=== PATIENT | male | born 1985 | race Two or more races ===

== ENCOUNTER 2025-06-06 15:26 | Emergency (ER) | payer OTHER ==
[~2025-06-06] VITALS: Ht 175.3 cm; Wt 109.1 kg
[2025-06-06 15:28] VITALS: TEMP 97.8
--- NOTE | 2025-06-06 15:59 | ED.PDOC ---
Foreign Body HPI Comments 40y M who presents to the ED for chief complaint of foreign body. Pt states he ate a multivitamin earlier this afternoon and states he started to feel something was stuck in his throat afterwards. Pt states he tried to drink his entire water bottle to help with swallowing and states despite finishing whole bottle of water, pt continues to feel a sensation of something stuck in his throat. Pt states he felt a irritation when drinking water and came to the ED for further evaluation. Pt in the ED, in no respiratory distress and states he is able to keep solids and liquids down since. Pt otherwise denies any medical history or these symptoms in the past. Pt in the ED, otherwise stable vitals including 02 sat of 96% on room air, BP 127/73, rr 16, heart rate 61 and temp of 97.8 F. Pt otherwise denies any other symptoms at this time. Chief Complaint: Foreign Body Time Seen by MD: 16:08 History of Present Illness: Medications, Allergies Allergies: Coded Allergies: NO KNOWN ALLERGIES (Unverified , 06/06/25) Information Source: Patient Mode of Arrival: Ambulatory Past Medical History PAST MEDICAL HISTORY: Denies Surgical History: Denies all surgeries Family History Family History: Reviewed,noncontributory to illness Social History Smoker: Non-Smoker Alcohol: Denies ETOH Use Drugs: Denies Drug Use Lives In: Home All Other Systems: Reviewed and Negative (see HPI) Physical Exam General Appearance: No Apparent Distress HEENT: Other (Pupils and face symmetric. Moist mucous membranes. No pharyngeal erythema, edema or lesion noted.) Neck: Full Range of Motion, Normal Inspection Respiratory: Lungs Clear, No Accessory Muscle Use, No Respiratory Distress, Normal Breath Sounds Cardiovascular: No Edema, No JVD, Regular Rate/Rhythm Breast Exam: Deferred Gastrointestinal: Non Tender, Soft Genitalia: Deferred Pelvic: Deferred Rectal: Deferred Extremities: Normal inspection, Normal range of motion, Non-tender, No pedal edema Neurologic: Alert (Oriented x4), Normal Affect, Normal Mood, Other (Ambulatory) Cerebellar Function: NOT DONE Reflexes: NOT DONE Skin: Dry, Normal Color, Warm Lymphatic: NOT DONE Was a procedure done? Was a procedure done?: No FB Differential Dx Differential Diagnosis: Abrasion, Foreign Body, Other (Pharyngitis, esophagitis, among others) X-Ray, Labs, Meds, VS Vital Signs Date Time Temp Pulse Resp B/P (MAP) Pulse Ox O2 Delivery O2 Flow Rate FiO2 06/06/25 15:28 97.8 61 16 127/73 96 97.8 Lab Test 06/06/25 16:49 Range/Units White Blood Count 7.3 4.4-10.8 10^3/uL Red Blood Count 4.29 L 4.5-5.90 10^6/uL Hemoglobin 15.0 13.5-17.5 g/dL Hematocrit 40.8 L 41.0-53.0 % Mean Corpuscular Volume 95.1 80.0-100.0 fL Mean Corpuscular Hemoglobin 34.9 H 28.0-32.0 pg Mean Corpuscular Hemoglobin Concent 36.7 H 32.0-36.0 g/dL Red Cell Distribution Width 11.9 11.8-14.3 % Platelet Count 170 140-450 10^3/uL Mean Platelet Volume 10.4 6.9-10.8 fL Neutrophils (%) (Auto) 70.0 37.0-80.0 % Lymphocytes (%) (Auto) 20.8 10.0-50.0 % Monocytes (%) (Auto) 7.3 0.0-12.0 % Eosinophils (%) (Auto) 1.1 0.0-7.0 % Basophils (%) (Auto) 0.8 0.0-2.0 % Neutrophils # (Auto) 5.1 1.6-8.6 10 ^3/uL Lymphocytes # (Auto) 1.5 0.4-5.4 10 ^3/uL Monocytes # (Auto) 0.5 0-1.3 10 ^3/uL Eosinophils # (Auto) 0.1 0-0.8 10 ^3/uL Basophils # (Auto) 0.1 0-0.2 10 ^3/uL Nucleated Red Blood Cells 0.0 % Sodium Level 138 136-145 mmol/L Potassium Level 3.9 3.5-5.1 mmol/L Chloride Level 106 98-107 mmol/L Carbon Dioxide Level 25 20-31 mmol/L Anion Gap 7 5-15 Blood Urea Nitrogen 10 9-23 mg/dL Creatinine 0.84 0.700-1.30 mg/dL Glomerular Filtration Rate Calc 112 >90 mL/min BUN/Creatinine Ratio 11.9 10.0-20.0 Serum Glucose 102 74-106 mg/dL Calcium Level 9.0 8.7-10.4 mg/dL Current Medications Medications (Trade) Dose Ordered Sig/Nasreen Route Start Time Stop Time Status Last Admin Lidocaine HCl (Xylocaine 2% Viscous) 10 ml ONCE ONCE PO 06/06/25 16:00 06/06/25 16:01 DC 06/06/25 16:[address] [address] Ph: [phone] DIAGNOSTIC IMAGING Diagnostic Imaging Report : [id number] Signed PATIENT: ERICK MAC ACCT: [id number] UNIT: [id number] : 1985 LOC: ER ROOM / BED: / AGE / SEX: 40 / M ADM STATUS: REG ER SERVICE 1551 ORDERING PHYSICIAN: MARILYN MYERS MD PROCEDURE(s): NKICT - NECK WITHOUT CONTRAST REASON: possible throat FB (vitamin tablet) ORDER NUMBER(s): [id number], ACCESSION NUMBER(s): [id number] CLINICAL HISTORY: possible throat FB (vitamin tablet) TECHNIQUE: CT of the neck was performed without intravenous contrast. This exam was performed according to our departmental dose optimization program. Up-to-date CT equipment and radiation dose reduction techniques are utilized as appropriate. CTDI 25.5 DLP 841.9 COMPARISON: None FINDINGS: The parotid, submandibular, and thyroid glands are grossly unremarkable. The airway is patent. The epiglottis and palatine/lingual tonsils are unremarkable. No definite foreign body is evident. No acute osseous abnormalities evident. There is no enlarged lymph node. The imaged intracranial structures are grossly unremarkable. The image upper lungs are clear. IMPRESSION: No acute noncontrast CT abnormality of the neck. ATED BY: PIPE WEI MD DICTATED DATE/TIME: 06/06/251630 SIGNED BY: PIPE WEI MD SIGNED DATE/TIME: 06/06/25 1631 CC: [address] [address] Ph: [phone] DIAGNOSTIC IMAGING Diagnostic Imaging Report : [id number] Signed PATIENT: ERICK MAC ACCT: [id number] UNIT: [id number] : 1985 LOC: ER ROOM / BED: / AGE / SEX: 40 / M ADM STATUS: REG ER SERVICE 1551 ORDERING PHYSICIAN: MARILYN MYERS MD PROCEDURE(s): CXRP - CHEST PORTABLE REASON: possible throat FB (vitamin) ORDER NUMBER(s): [id number], ACCESSION NUMBER(s): [id number] CLINICAL HISTORY: possible throat FB (vitamin) TECHNIQUE: Single view of the chest was obtained. COMPARISON: None FINDINGS: The heart size and pulmonary vasculature are normal. The lungs are clear. IMPRESSION: NO ACUTE CARDIOPULMONARY PROCESS. ATED BY: PIPE WEI MD DICTATED DATE/TIME: 06/06/251625 SIGNED BY: PIPE WEI MD SIGNED DATE/TIME: 06/06/251625 CC: X-Ray, Labs, Meds, VS Comment 40-year-old male with no significant past medical history complaining of a foreign body sensation in his throat after swallowing a vitamin Vitals unremarkable Exam unremarkable Rhythm strip independently interpreted by me: Sinus rhythm, rate 61, no ectopy. CT neck soft tissue unremarkable Chest x-ray unremarkable CBC and basic metabolic panel unremarkable Patient treated with the following in the ED: Viscous lidocaine 10 mL p.o. On re-evaluation, patient states symptoms have improved. Vitals were stable. No difficulty swallowing and no respiratory distress. Patient appears stable for discharge with close outpatient follow-up with his primary doctor. Rx ibu profen Time of 1ST Reevaluation: 18:29 Reevaluation 1ST: Improved Patient Education/Counseling: Diagnosis, Treatment Family Education/Counseling: No Family Present Departure 1 Departure Time of Disposition: 18:29 Impression: Primary Impression: Sensation of foreign body in throat Disposition: HOME / SELF CARE / HOMELESS Condition: Stable Additional Instructions: Your blood tests were unremarkable. Your chest x-ray was normal. Your neck CT did not show any throat foreign body. Your symptoms may be due to irritation or an abrasion in your throat. I have prescribed pain medication. Follow-up with your primary doctor in 1-2 days. Return to ER for persistent or worsening symptoms. e-Prescriptions Ibuprofen Micronized (Ibuprofen) 800 Mg Tab 800 MG PO Q8HP PRN, #30 TAB Prn throat pain. Take with food. Prov: MARILYN MYERS MD 06/06/25 Discharged With: Self Critical Care Note Critical Care Time?: No Stability Stability form required: No Heart Score Heart Score: Heart Score Response (Comments) Value History N/A 0 EKG N/A 0 Age N/A 0 Risk Factors N/A 0 Troponin N/A 0 Total 0 I personally scribed for MARILYN MYERS MD ([email or web address]) on 06/06/25 at 15:59. Electronically submitted by Priti Royal ([facility] [employer]). I personally scribed for MARILYN MYERS MD ([email or web address]) on 06/06/25 at 16:09. Electronically submitted by Priti Royal ([facility]). I personally scribed for MARILYN MYERS MD (NETTABRIAN) on 06/06/25 at 16:36. Electronically submitted by Priti Royal ([facility]). MARILYN MYERS MD Jun 06, 2025 15:59
--- NOTE | 2025-06-06 16:28 | DVH ---
CLINICAL HISTORY: possible throat FB (vitamin) TECHNIQUE: Single view of the chest was obtained. COMPARISON: None FINDINGS: The heart size and pulmonary vasculature are normal. The lungs are clear. IMPRESSION: NO ACUTE CARDIOPULMONARY PROCESS.
[2025-06-06] MEDS: LIDOCAINE VISCOUS 2% 15ML UD PO ONE (16:32)
--- NOTE | 2025-06-06 16:33 | DVH ---
CLINICAL HISTORY: possible throat FB (vitamin tablet) TECHNIQUE: CT of the neck was performed without intravenous contrast. This exam was performed accordi ng to our departmental dose optimization program. Up-to-date CT equipment and radiation dose reductio n techniques are utilized as appropriate. CTDI 25.5 DLP 841.9 COMPARISON: None FINDINGS: The parotid, submandibular, and thyroid glands are grossly unremarkable. The airway is patent. The epiglottis and palatine/lingual tonsils are unremarkable. No definite foreign body is evident. No acute osseous abnormalities evident. There is no enlarged lymph node. The imaged intracranial structures are grossly unremarkable. The image upper lungs are clear. IMPRESSION: No acute noncontrast CT abnormality of the neck.
[2025-06-06 17:20] LABS: Hematocrit 40.8 % (41.0-53.0); Hemoglobin 15.0 g/dL (13.5-17.5); Mean Corpuscular Hemoglobin 34.9 pg (28.0-32.0); Mean Corpuscular Volume 95.1 fL (80.0-100.0); Nucleated Red Blood Cells % 0.0 %
[2025-06-06 17:30] LABS: Chloride 106 mmol/L (98-107); Potassium 3.9 mmol/L (3.5-5.1); Sodium 138 mmol/L (136-145)
[2025-06-06 17:31] LABS: Anion Gap 7 (5-15); Carbon Dioxide 25 mmol/L (20-31)
[2025-06-06 17:32] LABS: Calcium 9.0 mg/dL (8.7-10.4)
[2025-06-06 17:36] LABS: BUN/Creatinine Ratio 11.9 (10.0-20.0); Blood Urea Nitrogen 10 mg/dL (9-23); Glucose 102 mg/dL (74-106)
[2025-06-06] MEDS ORDERED: IBUP-1455 PO (18:31)
[2025-06-06 19:11] VITALS: BP 129/84; PULSE 61; RESP 16; O2SAT 96
== END 2025-06-06 19:13 | disposition home or self-care (01) ==
LOC: EDBD 15:26 → ER 15:26
DX: R09.A2 Foreign body sensation, throat (principal)
CPT/HCPCS: 36415; 70490; 71045; 80048; 85025